=== PATIENT | male | born 1950 | race Caucasian/White ===

== ENCOUNTER 2021-05-18 06:56 | Day surgery (SDC) | payer OTHER ==
[2021-05-15 10:55] LABS: Absolute Lymphocytes (CBC) 2.1 K/uL (0.7-4.9); Basophils % 0.7 % (0-1.3); Hematocrit 40.7 % (39.6-49.0); Lymphocytes % 28.3 % (15.3-44.8); MPV 7.7 fL (7.6-11.3); RBC Red Blood Cell Count 4.55 M/uL (4.33-5.43)
[2021-05-15 11:02] LABS: Protime INR 1.21
[2021-05-15 11:10] LABS: Potassium 4.1 mmol/L (3.5-5.1)
[2021-05-18] MEDS ORDERED: FLUMAZENIL 0.1 MG/ML (5 mL VIAL) IV ONE (07:31)
[2021-05-18] MEDS ORDERED: NA CHLORIDE 0.9% 500 ML ONE (07:31)
[2021-05-18] MEDS ORDERED: ATROPINE SULF 1 MG/10 ML SYR IV ONE (07:31)
[2021-05-18] MEDS ORDERED: METOPROLOL TARTRATE 5 MG/5 ML INJ IV ONE (07:33)
[2021-05-18] MEDS ORDERED: MIDAZOLAM HCL 10 ML ONE (07:33)
[2021-05-18] MEDS ORDERED: MIDAZOLAM HCL 2 MG/2 ML INJ ONE (08:13)
--- NOTE | 2021-05-18 09:46 | OP ---
Surgeon: Dwain Farah MD Day Treatment Clinician/Art Therapist: Maranda Horner. Admitted on 05/18/2021 to my service as an outpatient. Reason For Admission: Direct current cardioversion. Indication: Atrial fibrillation. History Of Present Illness: The patient is 71. Negative cardiac workup. Atrial fibrillation, has f joe metoprolol. He is on Xarelto for at least 3 weeks, brought to the recovery room today given Ve rsed for sedation. He was given a total of 10 mg of Versed, received 1 shock with 100 joules, and he converted to sinus rhythm without any complication or blood loss. Anesthesia: Total conscious sedation was 20 minutes. Final Diagnosis: Atrial fibrillation, status post successful cardioversion to sinus rhythm. He will continue metoprolol and Xarelto. He will go home when he wakes up. He will see me in the office in 2 weeks. YVETTE/REHANA Voice ID: [id number] Report ID: [id number]
[2021-05-18 11:13] VITALS: BP 107/75; O2SAT 99
[2021-05-18 11:18] VITALS: TEMP 97.9
== END 2021-05-18 10:35 | disposition home or self-care (01) ==
LOC: CCL 06:56
DX: I48.91 Unspecified atrial fibrillation (principal); I10 Essential (primary) hypertension; Z20.822 Contact with and (suspected) exposure to COVID-19; Z82.49 Family history of ischemic heart disease and other diseases of the circulatory system
CPT/HCPCS: 93005; 85025; 80048; 36415; 85610; 85730; 92960; U0003; J2250; J7040

== ENCOUNTER 2021-06-22 06:40 | Day surgery (SDC) | payer OTHER ==
[2021-06-19 15:59] LABS: Absolute Lymphocytes (CBC) 1.5 K/uL (0.7-4.9); Hematocrit 42.3 % (39.6-49.0); Lymphocytes % 22.3 % (15.3-44.8); MPV 7.3 fL (7.6-11.3); RBC Red Blood Cell Count 4.77 M/uL (4.33-5.43)
[2021-06-19 16:10] LABS: Protime INR 2.07
[2021-06-19 16:25] LABS: Potassium 4.4 mmol/L (3.5-5.1)
[2021-06-22] MEDS ORDERED: NA CHLORIDE 0.9% 500 ML ONE (06:50)
[2021-06-22] MEDS ORDERED: METOPROLOL TARTRATE 5 MG/5 ML INJ IV ONE (07:04)
[2021-06-22] MEDS ORDERED: MIDAZOLAM HCL 10 ML ONE (07:05)
[2021-06-22] MEDS ORDERED: FLUMAZENIL 0.1 MG/ML (5 mL VIAL) IV ONE (07:05)
[2021-06-22] MEDS ORDERED: ATROPINE SULF 1 MG/10 ML SYR IV ONE (07:05)
[2021-06-22 07:20] VITALS: TEMP 97.8
[2021-06-22 08:08] VITALS: O2SAT 96
--- NOTE | 2021-06-22 08:15 | OP ---
Surgeon: Dwain Farah MD Procedure: Direct current cardioversion. Indication: Atrial fibrillation. Mr. Mims is 71, had a cardioversion about a month ago, on meto prolol and Xarelto, which was successful, but he went back into AFib. We will put him on amiodarone 400 mg b.i.d. load for a week, then 200 mg daily. He remained in atrial fibrillation with rapid vent ricular response, symptomatic. Procedure In Detail: Brought to the metallurgical lab technician today. He received 7 mg Versed IV push for total sedat ion. Received 1 shock of 100 joules, which did not work and another shock of 200 joules and converte d to sinus rhythm. There were no complications. No blood loss. Postoperative Diagnosis: Atrial fibrillation, status post successful direct current cardioversion. Anesthesia: Total conscious sedation was 30 minutes. Plan is to discharge him home when he wakes up. Continue amiodarone and Xarelto. If his symptoms re occur, we will send him for an ablation. YVETTE/REHANA Voice ID: [id number] Report ID: [id number]
[2021-06-22 08:59] VITALS: BP 116/87
--- NOTE | 2021-06-24 07:31 | EKG ---
Test Date: 2021-06-22 Test Time: 07:41:47 Medical Technologist Prn: MARKOT MEASUREMENT RESULTS: Intervals: Rate: 79 MI: 190 QRSD: 88 QT: 414 QTc: 474 [place]: P: 24 MI: 190 QRS: 67 T: 40 INTERPRETIVE STATEMENTS: Normal sinus rhythm Septal infarct, age undetermined Abnormal ECG Compared to ECG 05/18/2021 09:54:51 Myocardial infarct finding now present Right-axis deviation no longer present Electronically Signed On 06-24-21 07:26:38 POLICY ISSUE CLERK by Dwain Farah
== END 2021-06-22 08:45 | disposition home or self-care (01) ==
LOC: CCL 06:40
DX: I48.0 Paroxysmal atrial fibrillation (principal); I10 Essential (primary) hypertension; Z20.822 Contact with and (suspected) exposure to COVID-19; Z82.49 Family history of ischemic heart disease and other diseases of the circulatory system
CPT/HCPCS: 93005; 85025; 80048; 36415; 85610; 85730; 92960; U0003; J2250; J7040